=== PATIENT | female | born 1950 | race Caucasian/White ===

== ENCOUNTER 2019-04-01 12:33 | Emergency (ER) | payer MEDICARE, BC ==
--- NOTE | 2019-04-01 13:29 | EDM.PDOC ---
ED HPI GENERAL MEDICAL PROBLEM - General Chief Complaint: Upper Extremity Injury/Pain Stated Complaint: LEFT ARM HURTS, SOB Time Seen by Provider: 04/01/19 13:17 Source of Information: Reports: Patient, Family, RN Notes Reviewed History Limitations: Reports: No Limitations - History of Present Illness INITIAL COMMENTS - FREE TEXT/NARRATIVE: 68-year-old female presents emergency department today complaint of left shoulder pain and chest pressure, she states been going on for several months 2- 3 it is progressively getting worse she notices more with exertion the pressure will come and go she is also felt she has had some swelling underneath her left axilla. She does use tobacco products does feel short of breath only with exertion not at rest no nausea no vomiting no or GI symptomatology. She admits she is behind on her health maintenance - Related Data Allergies Allergy/AdvReac Type Severity Reaction Status Date / Time amoxicillin trihydrate Allergy Unknown doesn't Verified 04/01/19 13:02 [From Augmentin] remember potassium clavulanate Allergy Unknown doesn't Verified 04/01/19 13:02 [From Augmentin] remember Home Meds: Home Meds Aspirin [Adult Low Dose Aspirin EC] 81 mg PO DAILY 11/27/13 [History] Citalopram Hydrobromide [Celexa] 40 mg PO DAILY 11/27/13 [History] Pantoprazole Sodium 40 mg PO DAILY 11/27/13 [History] Albuterol Sulfate [Albuterol Sulfate HFA] 2 puff INH Q4H PRN 02/23/15 [History] Nicotine [Habitrol] 21 mg TRDERM DAILY #30 patch 02/25/15 [Rx] Calcium Carb & Citrate/Vit D3 [Calcium + D3 ER Tablet] 1 tab PO DAILY 04/01/19 [ History] Past Medical History Cardiovascular History: Reports: High Cholesterol Respiratory History: Reports: COPD Gastrointestinal History: Reports: [employer] History: Reports: Psychiatric History: Reports: Depression - Past Surgical History HEENT Surgical History: Reports: Cataract Surgery Other Cardiovascular Surgeries/Procedures: angiogram GI Surgical History: Reports: Cholecystectomy Social & Family History - Tobacco Use Smoking Status *Q: Current Every Day Smoker Years of Tobacco use: 40 Packs/Tins Daily: 0.5 - Caffeine Use Caffeine Use: Reports: Tea - Alcohol Use Days Per Week of Alcohol Use: 7 Number of Drinks Per Day: 3 Total Drinks Per Week: 21 - Recreational Drug Use Recreational Drug Use: No Review of Systems - Review of Systems Review Of Systems: See Below Constitutional: Reports: No Symptoms Eyes: Reports: No Symptoms Ears: Reports: No Symptoms Nose: Reports: No Symptoms Mouth/Throat: Reports: No Symptoms Respiratory: Reports: Shortness of Breath. Denies: Cough, Sputum Cardiovascular: Reports: Chest Pain GI/Abdominal: Reports: No Symptoms Genitourinary: Reports: No Symptoms Musculoskeletal: Reports: Shoulder Pain Skin: Reports: No Symptoms Neurological: Reports: No Symptoms ED EXAM, GENERAL - Physical Exam Exam: See Below Free Text/Narrative:: General: Female, not in any distress, alert and oriented x3 HEENT: head is atraumatic normocephalic, eyes pupils equal round reactive to light, sclera clear no conjunctivitis appreciated. Ears tympanic membranes clear and lloyd landmarks and light reflex are present bilaterally canals are clear. Nose no septal deviation, nares are clear, no blood present. Mouth mucosa is moist and pink no erythema or exudate noted in soft palate, tongue is midline uvula is midline, dentition is intact. Neck: Supple no thyromegaly no tracheal deviation. Nodes: Cervical nodes subclavicular nodes nontender no palpable lymphadenopathy noted. Lungs: clear to auscultation bilaterally with symmetrical respirations, no adventitious noise appreciated. CV: Regular rate and rhythm S1 and S2 appreciated no murmurs rubs or gallops noted. Chest I cannot appreciate any specific tenderness to palpation palpation of the axilla I cannot appreciate any lymph nodes Abdomen: Soft, nontender, no palpable masses or organomegaly appreciated, no distention no guarding bowel sounds are present, . Neuro: GCS 15 Skin: Warm and dry, intact Extremities: No lower extremity edema appreciated, examination of the shoulder there is full range of motion without difficultyspecific point tenderness noted. Course - Vital Signs Last Recorded V/S: Last Vital Signs Temp 97.5 F 04/01/19 13:04 Pulse 76 04/01/19 15:16 Resp 21 H 04/01/19 15:16 BP 174/103 H 04/01/19 15:16 Pulse Ox 94 L 04/01/19 15:16 - Orders/Labs/Meds Orders: Active Orders 24 hr Category Date Time Status Cardiac Monitoring [RC] .As Directed Care 04/01/19 13:25 Active EKG Documentation Completion [RC] ASDIRECTED Care 04/01/19 13:26 Active Peripheral IV Care [RC] . DIRECTED Care 04/01/19 13:59 Active RT Aerosol Therapy [RC] ASDIRECTED Care 04/01/19 14:38 Active Chest w Cont [CT] Stat Exams 04/01/19 14:37 Stop Req Iopamidol [Isovue-370 (76%)] Med 04/01/19 15:15 Active 100 ml IV . DIRECTED Sodium Chloride 0.9% [Normal Saline] 100 ml Med 04/01/19 15:15 Active IV ASDIRECTED Sodium Chloride 0.9% [Saline Flush] Med 04/01/19 13:59 Active 10 ml FLUSH ASDIRECTED PRN Peripheral IV Insertion Adult [OM.PC] Urgent Oth 04/01/19 13:59 Ordered EKG 12 Lead [EK] Stat Ther 04/01/19 13:26 Ordered Medication Orders Sodium Chloride (Normal Saline) 100 mls @ 3 mls/sec IV ASDIRECTED MARY Last Admin: 04/01/19 15:21 Dose: 3 mls/sec Iopamidol (Isovue-370 (76%)) 100 ml IV . DIRECTED MARY Last Admin: 04/01/19 15:20 Dose: 100 ml Sodium Chloride (Saline Flush) 10 ml FLUSH ASDIRECTED PRN PRN Reason: Keep Vein Open Last Admin: 04/01/19 15:20 Dose: 10 ml Admin: 04/01/19 14:26 Dose: 10 ml Labs: Laboratory Tests 04/01/19 04/01/19 04/01/19 Range/Units 13:34 13:34 13:34 WBC 6.2 (4.5-11.0) K/uL RBC 4.72 (3.30-5.50) M/uL Hgb 14.6 (12.0-15.0) g/dL Hct 44.6 (36.0-48.0) % MCV 95 (80-98) fL MCH 31 (27-31) pg MCHC 33 (32-36) % Plt Count 263 (150-400) K/uL Neut % (Auto) 49 (36-66) % Lymph % (Auto) 43 (24-44) % [place] % (Auto) 8 H (2-6) % Eos % (Auto) 1 L (2-4) % Baso % (Auto) 0 (0-1) % D-Dimer, Quantitative 449 H (0.0-400.0) ng/mL Sodium 141 (140-148) mmol/L Potassium 2.7 L* (3.6-5.2) mmol/L Chloride 102 (100-108) mmol/L Carbon Dioxide 32 (21-32) mmol/L Anion Gap 9.7 (5.0-14.0) mmol/L BUN 12 D (7-18) mg/dL Creatinine 0.9 (0.6-1.0) mg/dL Est Cr Clr Drug Dosing 56.00 mL/min Estimated GFR (MDRD) > 60 (>60) Glucose 93 (74-106) mg/dL Calcium 9.7 (8.5-10.1) mg/dL Total Bilirubin 0.8 D (0.2-1.0) mg/dL AST 19 (15-37) U/L ALT 20 (12-78) U/L Alkaline Phosphatase 83 (46-116) U/L Troponin I < 0.017 (0.000-0.056) ng/mL Total Protein 7.2 (6.4-8.2) g/dL Albumin 3.4 (3.4-5.0) g/dL Globulin 3.8 H (2.3-3.5) g/dL Albumin/Globulin Ratio 0.9 L (1.2-2.2) Meds: Medications Generic Name Dose Route Start Last Admin Trade Name Freq PRN Reason Stop Dose Admin Sodium Chloride 100 mls @ 3 mls/sec 04/01/19 15:15 04/01/19 15:21 Normal Saline IV 3 mls/sec ASDIRECTED MARY Administration Iopamidol 100 ml 04/01/19 15:15 04/01/19 15:20 Isovue-370 (76%) IV 100 ml . DIRECTED MARY Administration Sodium Chloride 10 ml 04/01/19 13:59 04/01/19 15:20 Saline Flush FLUSH 10 ml ASDIRECTED PRN Administration Keep Vein Open Discontinued Medications Generic Name Dose Route Start Last Admin Trade Name Freq PRN Reason Stop Dose Admin Albuterol/Ipratropium 3 ml 04/01/19 14:37 04/01/19 15:20 Duoneb 3.0-0.5 Mg/3 Ml NEB 04/01/19 14:38 3 ml ONETIME ONE Administration Lactated Ringer's 1,000 mls @ 999 mls/hr 04/01/19 13:59 04/01/19 14:17 Ringers, Lactated IV 04/01/19 14:59 999 mls/hr BOLUS ONE Administration Potassium Chloride 20 meq/ 112 mls @ 56 mls/hr 04/01/19 14:30 04/01/19 14:21 Lidocaine HCl 2 ml/ Sodium IV 04/01/19 16:29 56 mls/hr Chloride ONETIME ONE Administration Potassium Chloride 40 meq 04/01/19 14:31 04/01/19 15:20 Klor-Con M20 PO 04/01/19 14:32 40 meq ONETIME ONE Administration Sodium Chloride 10 ml 04/01/19 15:15 04/01/19 15:49 Normal Saline FLUSH 04/01/19 15:16 Not Given ONETIME ONE Departure - Departure Time of Disposition: 16:41 Disposition: Home, Self-Care 01 Condition: Fair Clinical Impression: Left arm pain, Ascending aortic aneurysm - Discharge Information Referrals: Liv Mata PA [Primary Care Provider] - Forms: ED Department Discharge Additional Instructions: Please follow-up with her primary care in the next 2-3 days for recheck her potassium at that time and discuss other issues found on the CAT scan, call or return to the emergency department worsening of symptoms - My Orders Last 24 Hours: My Active Orders 04/01/19 13:25 Cardiac Monitoring [RC] .As Directed 04/01/19 13:26 EKG Documentation Completion [RC] ASDIRECTED EKG 12 Lead [EK] Stat 04/01/19 13:59 Peripheral IV Care [RC] . DIRECTED Sodium Chloride 0.9% [Saline Flush] 10 ml FLUSH ASDIRECTED PRN Peripheral IV Insertion Adult [OM.PC] Urgent 04/01/19 14:37 Chest w Cont [CT] Stat 04/01/19 14:38 RT Aerosol Therapy [RC] ASDIRECTED 04/01/19 15:15 Iopamidol [Isovue-370 (76%)] 100 ml IV . DIRECTED Sodium Chloride 0.9% [Normal Saline] 100 ml IV ASDIRECTED - Assessment/Plan Last 24 Hours: My Active Orders 04/01/19 13:25 Cardiac Monitoring [RC] .As Directed 04/01/19 13:26 EKG Documentation Completion [RC] ASDIRECTED EKG 12 Lead [EK] Stat 04/01/19 13:59 Peripheral IV Care [RC] . DIRECTED Sodium Chloride 0.9% [Saline Flush] 10 ml FLUSH ASDIRECTED PRN Peripheral IV Insertion Adult [OM.PC] Urgent 04/01/19 14:37 Chest w Cont [CT] Stat 04/01/19 14:38 RT Aerosol Therapy [RC] ASDIRECTED 04/01/19 15:15 Iopamidol [Isovue-370 (76%)] 100 ml IV . DIRECTED Sodium Chloride 0.9% [Normal Saline] 100 ml IV ASDIRECTED Plan: Assessment Acuity = acute Site and laterality = left arm pain, new diagnosis of ascending aortic aneurysm , left lobe pulmonary nodule, right breast nodule as well as hypokalemia Etiology = unclear etiology Manifestations = none Location of injury = Home Lab values = CBC unremarkable d-dimer slightly elevated around 4:15, potassium low 2.7 as hypokalemia the remainder of the CMP was unremarkable troponin is negative EKG shows no ST elevations or depressions CT scan of the chest shows ascending aortic aneurysm 4.4 x 4.2 cm left lobe pulmonary nodule in the right breast nodule of uncertain significance recommend follow-up Plan I did review lab work CT scan results to her potassium was replaced in the ED have asked her follow up with her primary in 2-3 days for reevaluation recheck of the potassium she was also provided a copy of her CT scan results and images of which will need follow-up This note was dictated using [employer] voice recognition software please call with any questions on syntax or grammar.
[2019-04-01] MEDS ORDERED: Lactated Ringers 1,000 ML IV ONE (13:59)
[2019-04-01] MEDS ORDERED: Potassium Chloride 20 MEQ in Premix Bag 1 BAG IV ONE (13:59)
[2019-04-01] MEDS: Sodium Chloride 0.9% 10 ML Syringe FLUSH PRN ×2 (14:26→15:20)
--- NOTE | 2019-04-01 14:29 | CR ---
CHEST: 2 view CLINICAL HISTORY:Chest pain COMPARISON:2013 FINDINGS: Heart and pulmonary vascularity are normal. The lungs are mildly hyperaerated. There is some pleural parenchymal scarring right apex. There is a pectus excavatum.. Impression: No acute cardio pelvic process Chronic lung changes Right apical pleural thickening Pectus excavatum
[2019-04-01] MEDS ORDERED: Potassium Chloride 20 MEQ, Lidocaine 1% 2 ML in Sodium Chloride 0.9% 100 ML IV ONE (14:30)
--- NOTE | 2019-04-01 14:30 | CR ---
Shoulder Comp Lt CLINICAL HISTORY: Pain FINDINGS: There is no acute fracture or dislocation in the left shoulder. Articular surfaces are smooth Impression: Negative
[2019-04-01] MEDS ORDERED: Potassium Chloride 20 MEQ Tab.ER PO ONE (14:31)
[2019-04-01] MEDS ORDERED: Albuterol/Ipratropium 3.0-0.5 MG/3 ML Neb Soln NEB ONE (14:37)
[2019-04-01] MEDS ORDERED: Sodium Chloride 0.9% 100 ML IV SCH (15:15)
[2019-04-01] MEDS ORDERED: Iopamidol 755 Mg/ML 100 ML Bottle IV SCH (15:15)
[2019-04-01] MEDS ORDERED: Sodium Chloride 0.9% 10 ML SDV FLUSH ONE (15:15)
--- NOTE | 2019-04-01 16:06 | CRLCT ---
INDICATION: SOB. Chest pressure. Elevated D-dimer TECHNIQUE: CT chest pulmonary PE protocol acquired with IV contrast. 100 mL of Isovue 370 administered. COMPARISON: None FINDINGS: Cardiovascular structures: Normal vascular enhancement of the pulmonary arteries, no sign of pulmonary embolism. Normal cardiac size. Aneurysmal dilatation of the ascending aorta measuring 4.4 x 4.2 cm. Atherosclerotic changes. Mediastinum and nickolas: A shotty superior right hilar lymph node, nonspecific. No abnormally enlarged mediastinal lymph nodes. Lungs: No consolidation. Apical scarring and mild apical emphysematous changes. A 5 mm lingular nodular opacity on image 79 and a 5 mm left lower lobe nodular opacity on image 98. Mild central lower lobe bronchial wall prominence. Pleura and pericardium: No effusions. Chest wall and axilla: Small asymmetrical nodular densities in the right breast which could be related to glandular tissue. No abnormally enlarged axillary lymph nodes. Upper abdomen: A 1.1 cm near water attenuation left hepatic low-density lesion suggestive of a cyst. Cholecystectomy. Focal nodularity of the left adrenal body measuring 8 mm. Bones: An inferior chest pectus excavatum deformity. IMPRESSION: No CT evidence of a pulmonary embolus. An aneurysmal ascending aorta measuring 4.4 cm. Apparent mild central lower lobe bronchial wall prominence. Correlate clinically to exclude mild bronchitis. Left pulmonary nodular opacities. Followup, per the Fleischner society recommendations. Small right breast nodular densities which could represent glandular tissue, however recommend further evaluation with mammography and sonography. Dictated by Stephen Manzanares MD @ 04/01/2019 4:04:23 PM Please note that all CT scans at this facility use dose modulation, iterative reconstruction, and/or weight-based dosing when appropriate to reduce radiation dose to as low as reasonably achievable. Dictated by: Stephen Manzanares MD @ 04/01/2019 16:05:07 (Electronically Signed)
[2019-04-01 16:58] VITALS: BP 156/87
== END 2019-04-01 17:05 | disposition home or self-care (01) ==
LOC: JP.ED 12:33
DX: I71.2 Thoracic aortic aneurysm, without rupture (principal); E87.6 Hypokalemia; R91.1 Solitary pulmonary nodule; N63.0 Unspecified lump in unspecified breast; M25.512 Pain in left shoulder; K21.9 Gastro-esophageal reflux disease without esophagitis; F32.9 Major depressive disorder, single episode, unspecified; F17.210 Nicotine dependence, cigarettes, uncomplicated; Z98.49 Cataract extraction status, unspecified eye; Z90.49 Acquired absence of other specified parts of digestive tract; Z79.82 Long term (current) use of aspirin; Z79.899 Other long term (current) drug therapy; Z88.1 Allergy status to other antibiotic agents
CPT/HCPCS: 36415; 71046; 71275; 73030; 80053; 84484; 85025; 85379; 93005; 94640; 96365; 96366; 99284; A9270; J2001; J3480; J7030; J7120; Q9967; J7620-GY

== ENCOUNTER 2022-03-20 15:29 | Emergency (ER) | payer MEDICARE, BC ==
[2022-03-20 15:45] VITALS: BP 139/82; PULSE 72
== END 2022-03-20 16:24 | disposition home or self-care (01) ==
LOC: JP.ED 15:29
DX: S80.862A Insect bite (nonvenomous), left lower leg, initial encounter (principal); K21.9 Gastro-esophageal reflux disease without esophagitis; F17.210 Nicotine dependence, cigarettes, uncomplicated; Z88.0 Allergy status to penicillin; Z88.1 Allergy status to other antibiotic agents; Z79.899 Other long term (current) drug therapy; Z79.82 Long term (current) use of aspirin; Z90.49 Acquired absence of other specified parts of digestive tract; W57.XXXA Bitten or stung by nonvenomous insect and other nonvenomous arthropods, initial encounter
CPT/HCPCS: 99283

== ENCOUNTER 2022-04-26 01:36 | Emergency (ER) | payer MEDICARE, BC ==
[2022-04-26] MEDS ORDERED: Morphine 2 MG/ML SYRINGE IVPUSH ONE ×2 (02:20→03:15)
[2022-04-26] MEDS ORDERED: Morphine 2 MG/ML SYRINGE ONE ×2 (02:27→03:37)
[2022-04-26] MEDS ORDERED: Sodium Chloride 0.9% 1,000 ML IV SCH (03:00)
[2022-04-26] MEDS ORDERED: Potassium Chloride Riders 40 MEQ in Premix Bag 1 BAG IV ONE (03:00)
[2022-04-26] MEDS ORDERED: Lidocaine 1% 5 ML VIAL INJECT ONE (03:00)
[2022-04-26] MEDS ORDERED: Ondansetron 4 MG/2 ML SDV IVPUSH ONE (03:15)
[2022-04-26] MEDS ORDERED: Ondansetron 4 MG/2 ML SDV ONE (03:37)
[2022-04-26] MEDS ORDERED: Lidocaine 1% 5 ML VIAL ONE (03:41)
[2022-04-26] MEDS ORDERED: HYDROmorphone 0.5 MG/0.5 ML Syringe IVPUSH ONE ×2 (04:20→08:59)
[2022-04-26] MEDS ORDERED: HYDROmorphone 0.5 MG/0.5 ML Syringe ONE (04:25)
[2022-04-26 06:31] VITALS: BP 114/65; PULSE 92
[2022-04-26] MEDS ORDERED: fentaNYL 100 MCG/2 ML SDV IVPUSH ONE (07:16)
== END 2022-04-26 12:44 ==
LOC: JP.ED 01:36
DX: K85.90 Acute pancreatitis without necrosis or infection, unspecified (principal); K85.20 Alcohol induced acute pancreatitis without necrosis or infection; E87.6 Hypokalemia; J44.9 Chronic obstructive pulmonary disease, unspecified; I10 Essential (primary) hypertension; K21.9 Gastro-esophageal reflux disease without esophagitis; Z88.1 Allergy status to other antibiotic agents; Z88.0 Allergy status to penicillin; Z88.8 Allergy status to other drugs, medicaments and biological substances; Z79.899 Other long term (current) drug therapy; Z20.822 Contact with and (suspected) exposure to COVID-19
CPT/HCPCS: 36415; 80053; 80307; 83605; 83615; 83690; 84484; 85025; 86140; 96365; 96366; 96375; 96376; 99284-25; J1170; J2270; J2405; J3010; J3480; J7030; U0002